=== PATIENT | male | born 1985 | race Two or more races ===

== ENCOUNTER 2024-04-24 23:13 | Inpatient (IN) | payer BC ==
[~2024-04-24] VITALS: Ht 175.3 cm; Wt 93.9 kg
[2024-04-25] VITALS (11 sets, daily range): BP systolic 91–130; BP diastolic 54–74; PULSE 75–121; RESP 12–28; TEMP 102.3; O2SAT 94–100
[2024-04-25 00:27] LABS: Basophils # (auto) 0 10 ^3/uL (0-0.2); Basophils % (auto) 0.2 % (0.0-2.0); Eosinophils # (auto) 0 10 ^3/uL (0-0.8); Hematocrit 40.3 % (41.0-53.0); Hemoglobin 13.8 g/dL (13.5-17.5); Lymphocytes # (auto) 0.7 10 ^3/uL (0.4-5.4); Mean Corpuscular Hemoglobin 31.8 pg (28.0-32.0); Mean Corpuscular Hgb Conc. 34.4 g/dL (32.0-36.0); Mean Corpuscular Volume 92.5 fL (80.0-100.0); Monocytes # (auto) 0.5 10 ^3/uL (0-1.3); Monocytes % (auto) 2.7 % (0.0-12.0); Neutrophils # (auto) 15.8 10 ^3/uL (1.6-8.6); Neutrophils % (auto) 93.1 % (37.0-80.0); Platelet Count (auto) 387 10^3/uL (140-450); Red Blood Cells 4.36 10^6/uL (4.5-5.90)
[2024-04-25 01:47] LABS: Alanine Aminotransferase 31 U/L (7-40); Alkaline Phosphatase 122 U/L (46-116); Anion Gap 9 (5-15); Aspartate Aminotransferase 40 U/L (13-40); BUN/Creatinine Ratio 9.3 (10.0-20.0); Bilirubin, Total 0.6 mg/dL (0.2-1.0); Blood Urea Nitrogen 9 mg/dL (9-23); Carbon Dioxide 21 mmol/L (20-31); Chloride 109 mmol/L (98-107); Glucose 137 mg/dL (74-106); Potassium 4.2 mmol/L (3.5-5.1); Sodium 139 mmol/L (136-145); Total Protein 7.5 g/dL (5.7-8.2)
[2024-04-25 02:18] LABS: INR 1.21 (0.9-1.15); Prothrombin Time 12.6 sec (9.3-11.8)
[2024-04-25] MEDS: HEPARIN SODIUM (PORCINE) 5000 UNITS/ML 1ML VIAL IV ONE (02:59)
[2024-04-25] MEDS: NITROGLYCERIN 2% OINT 1GM PKG TD ONE (03:04)
[2024-04-25] MEDS ORDERED: HEPARIN SODIUM (PORCINE) 5000 UNITS/ML 1ML VIAL IV ONE (03:15)
[2024-04-25] MEDS: HEPARIN DRIP/D5W 100UNITS/ML 250 ML IV SCH ×2 (03:49→12:45)
[2024-04-25] MEDS ORDERED: MORPHINE SULFATE INJ 2 MG/ml SYRG IV PRN (05:15)
[2024-04-25] MEDS ORDERED: ONDANSETRON HCL 4 MG/2 ML VIAL IV PRN (05:15)
[2024-04-25] MEDS ORDERED: NITROGLYCERIN 0.4 MG SL TAB SL PRN (05:15)
[2024-04-25] MEDS: AZITHROMYCIN 500MG/ 250ML 250 ML IV SCH (10:00)
[2024-04-25] MEDS: cefTRIAXone 1GM/50ML D5W 50 ML IV SCH (10:39)
[2024-04-25 11:18] LABS: INR 1.15 (0.9-1.15); Partial Thromboplastin Time 34.9 SEC (24.5-34.5); Prothrombin Time 12.1 sec (9.3-11.8)
[2024-04-25 11:20] LABS: Triglycerides 128 mg/dL (< 150)
[2024-04-25 11:21] LABS: LDL Cholesterol 75 mg/dL (< 100)
[2024-04-25 11:22] LABS: Cholesterol 121 mg/dL (< 200); HDL Cholesterol 22 mg/dL (40-59)
[2024-04-25] MEDS: ALBUTEROL SULF 2.5 MG/0.5ML(0.5%) NEB SOLN NEB PRN (11:31)
[2024-04-25] MEDS: HEPARIN SODIUM (PORCINE) 5000 UNITS/ML 1ML VIAL IV STA (12:53)
[2024-04-25] MEDS: ASPirin 81 mg TAB PO ONE (12:54)
[2024-04-25] MEDS: ATORVASTATIN 20 MG TAB PO ONE (12:54)
[2024-04-25] MEDS: LACTATED RINGER'S 1,000 ML IV SCH (12:54)
[2024-04-25] MEDS: ENOXAPARIN SOD 40 MG/0.4 ML SYRINGE SC SCH (15:30)
[2024-04-25 16:02] LABS: Amphetamine Screen, Urine Neg (NEGATIVE); Barbiturate Scree,Urine Neg (NEGATIVE)
[2024-04-25 16:03] LABS: Benzodiazephine Screen, Urine Neg (NEGATIVE); Cannabinoid Screen, Urine Neg (NEGATIVE); Cocaine Screen, Urine Neg (NEGATIVE); Opiate Scree,Urine Neg (NEGATIVE); Phencyclidine Screen, Urine Neg (NEGATIVE)
[2024-04-25 16:18] LABS: COVID19 ANTIGEN SOFIA FIA NEGATIVE (NEGATIVE); Rapid Influenza A Negative (Negative); Rapid Influenza B Negative (Negative)
[2024-04-25] MEDS: ACETAMINOPHEN 325 MG TAB PO PRN (18:23)
[2024-04-26] VITALS (16 sets, daily range): BP systolic 117–125; BP diastolic 69–79; PULSE 81–120; RESP 16–20; TEMP 98.7–102.8; O2SAT 93–100
[2024-04-26] MEDS: TEMAZEPAM 15 MG CAP PO PRN (00:13)
[2024-04-26] MEDS: guaiFENesin-DM 100/10mg/5ml SYR PO PRN (00:14)
[2024-04-26 06:30] LABS: Basophils # (auto) 0.1 10 ^3/uL (0-0.2); Basophils % (auto) 0.3 % (0.0-2.0); Eosinophils # (auto) 0.2 10 ^3/uL (0-0.8); Eosinophils % (auto) 0.8 % (0.0-7.0); Hematocrit 40.9 % (41.0-53.0); Hemoglobin 13.8 g/dL (13.5-17.5); Lymphocytes % (auto) 9.3 % (10.0-50.0); Mean Corpuscular Hemoglobin 30.9 pg (28.0-32.0); Mean Corpuscular Hgb Conc. 33.7 g/dL (32.0-36.0); Mean Corpuscular Volume 91.8 fL (80.0-100.0); Monocytes % (auto) 9.4 % (0.0-12.0); Neutrophils % (auto) 80.2 % (37.0-80.0); Nucleated Red Blood Cells % 0.1 %; Platelet Count (auto) 402 10^3/uL (140-450); Red Blood Cells 4.46 10^6/uL (4.5-5.90); Red Cell Distribution Width 13.1 % (11.8-14.3); White Blood Cell 21.2 10^3/uL (4.4-10.8)
[2024-04-26 06:41] LABS: Alanine Aminotransferase 39 U/L (7-40); Albumin 3.5 g/dL (3.2-4.8); Alkaline Phosphatase 122 U/L (46-116); Anion Gap 10 (5-15); Aspartate Aminotransferase 40 U/L (13-40); BUN/Creatinine Ratio 9.6 (10.0-20.0); Blood Urea Nitrogen 9 mg/dL (9-23); Calcium 8.5 mg/dL (8.7-10.4); Carbon Dioxide 24 mmol/L (20-31); Chloride 104 mmol/L (98-107); Glucose 95 mg/dL (74-106); Potassium 4.4 mmol/L (3.5-5.1); Sodium 138 mmol/L (136-145)
[2024-04-26 06:42] LABS: Bilirubin, Total 0.5 mg/dL (0.2-1.0); Total Protein 6.3 g/dL (5.7-8.2)
[2024-04-26] MEDS: levoFLOXacin 750MG 150 ML IV ONE (07:15)
[2024-04-26] MEDS ORDERED: VANCOMYCIN PER PHARMACY 0 MG IV SCH (08:15)
[2024-04-26] MEDS: PIPERACILLIN-TAZO 4.5GM 100 ML IV ONE (08:42)
[2024-04-26] MEDS: VANCOMYCIN 1GM/200ML 200 ML IV SCH ×2 (10:06→17:51)
[2024-04-26] MEDS: ASPirin 81 mg TAB PO SCH (10:06)
[2024-04-26] MEDS: PIPERACILLIN-TAZO 4.5GM 100 ML IV SCH (12:25)
[2024-04-26] MEDS: ALBUTEROL SULF 2.5 MG/0.5ML(0.5%) NEB SOLN NEB SCH (20:24)
[2024-04-26] MEDS: DOXYCYCLINE 100 MG TAB/CAP PO SCH (21:08)
[2024-04-26] MEDS: ATORVASTATIN 20 MG TAB PO SCH (21:08)
[2024-04-26] MEDS: levoFLOXacin 750MG 150 ML IV SCH (21:08)
[2024-04-27] VITALS (13 sets, daily range): BP systolic 121–137; BP diastolic 73–82; PULSE 103–125; RESP 14–20; TEMP 98.2–100.8; O2SAT 93–100
[2024-04-27] MEDS ORDERED: levoFLOXacin 750MG 150 ML IV SCH (10:00)
[2024-04-27] MEDS: LACTATED RINGER'S 1,000 ML IV ONE (10:05)
[2024-04-27] MEDS ORDERED: ACETAMINOPHEN 325 MG TAB PO PRN (11:00)
[2024-04-27 11:26] LABS: Basophils # (auto) 0.2 10 ^3/uL (0-0.2); Basophils % (auto) 0.8 % (0.0-2.0); Eosinophils # (auto) 0.1 10 ^3/uL (0-0.8); Eosinophils % (auto) 0.3 % (0.0-7.0); Hematocrit 40.4 % (41.0-53.0); Hemoglobin 13.9 g/dL (13.5-17.5); Lymphocytes # (auto) 1.1 10 ^3/uL (0.4-5.4); Lymphocytes % (auto) 4.6 % (10.0-50.0); Mean Corpuscular Hemoglobin 31.6 pg (28.0-32.0); Mean Corpuscular Hgb Conc. 34.4 g/dL (32.0-36.0); Mean Corpuscular Volume 91.6 fL (80.0-100.0); Monocytes # (auto) 2.1 10 ^3/uL (0-1.3); Monocytes % (auto) 8.9 % (0.0-12.0); Neutrophils # (auto) 19.6 10 ^3/uL (1.6-8.6); Neutrophils % (auto) 85.4 % (37.0-80.0); Platelet Count (auto) 402 10^3/uL (140-450); Red Blood Cells 4.41 10^6/uL (4.5-5.90); Red Cell Distribution Width 12.8 % (11.8-14.3)
[2024-04-27] MEDS: ACETAMINOPHEN 325 MG TAB PO SCH (12:48)
[2024-04-27] MEDS ORDERED: ACETAMINOPHEN 325 MG TAB PO SCH (14:00)
[2024-04-27] MEDS ORDERED: IOHEXOL 300 MG/ML 100ML BOTTLE IJ ONE (16:16)
[2024-04-27] MEDS ORDERED: MORPHINE SULFATE INJ 2 MG/ml SYRG IV PRN (18:15)
[2024-04-28] VITALS (15 sets, daily range): BP systolic 122–143; BP diastolic 79–89; PULSE 91–120; RESP 16–20; TEMP 97.3–102.2; O2SAT 94–100
[2024-04-28] MEDS: FLUCONAZOLE 200MG/100ML 100 ML IV SCH (10:46)
[2024-04-28] MEDS: PIPERACILLIN-TAZO 4.5GM 100 ML IV SCH (12:25)
[2024-04-28] MEDS: IBUPROFEN 800 MG TAB PO PRN (12:26)
[2024-04-28 12:49] LABS: Chloride 104 mmol/L (98-107); Sodium 134 mmol/L (136-145)
[2024-04-28 12:50] LABS: Anion Gap 8 (5-15); Carbon Dioxide 22 mmol/L (20-31)
[2024-04-28 12:55] LABS: BUN/Creatinine Ratio 11.2 (10.0-20.0); Blood Urea Nitrogen 10 mg/dL (9-23); Glucose 94 mg/dL (74-106)
[2024-04-28 13:06] LABS: CRP High Sensitivity > 20.00 mg/dL (<1.0)
[2024-04-28 13:07] LABS: Erythrocyte Sedimentation Rate 72 mm/hr (0-20)
[2024-04-28] MEDS: IBUPROFEN 600 MG TAB PO PRN (21:34)
[2024-04-29] VITALS (17 sets, daily range): BP systolic 114–147; BP diastolic 70–91; PULSE 85–110; RESP 16–21; TEMP 98.3–99.6; O2SAT 93–100
[2024-04-29 05:32] LABS: Eosinophils # (auto) 0.5 10 ^3/uL (0-0.8); Hemoglobin 13.7 g/dL (13.5-17.5); Lymphocytes # (auto) 1.2 10 ^3/uL (0.4-5.4); Lymphocytes % (auto) 5.9 % (10.0-50.0); White Blood Cell 20.7 10^3/uL (4.4-10.8)
[2024-04-29 05:34] LABS: Basophils # (auto) 0.1 10 ^3/uL (0-0.2); Basophils % (auto) 0.3 % (0.0-2.0); Eosinophils % (auto) 2.3 % (0.0-7.0); Hematocrit 40.2 % (41.0-53.0); Mean Corpuscular Hemoglobin 31.6 pg (28.0-32.0); Mean Corpuscular Hgb Conc. 34.1 g/dL (32.0-36.0); Mean Corpuscular Volume 92.6 fL (80.0-100.0); Monocytes # (auto) 1.8 10 ^3/uL (0-1.3); Monocytes % (auto) 8.8 % (0.0-12.0); Neutrophils # (auto) 17.1 10 ^3/uL (1.6-8.6); Neutrophils % (auto) 82.7 % (37.0-80.0); Platelet Count (auto) 436 10^3/uL (140-450); Red Blood Cells 4.34 10^6/uL (4.5-5.90); Red Cell Distribution Width 13.2 % (11.8-14.3)
[2024-04-29] MEDS: LACTATED RINGER'S 1,000 ML IV SCH (09:23)
[2024-04-30] VITALS (16 sets, daily range): BP systolic 106–132; BP diastolic 64–70; PULSE 78–109; RESP 14–19; TEMP 97.2–98.4; O2SAT 92–100
[2024-04-30 17:06] LABS: QuantiFERON-TB Gold Plus Negative (Negative)
[2024-05-01] VITALS (12 sets, daily range): BP systolic 115–137; BP diastolic 73–86; PULSE 70–105; RESP 15–18; TEMP 97.9–99.1; O2SAT 92–99
[2024-05-01 07:04] LABS: Anion Gap 6 (5-15); Carbon Dioxide 25 mmol/L (20-31); Chloride 103 mmol/L (98-107); Potassium 3.9 mmol/L (3.5-5.1); Sodium 134 mmol/L (136-145)
[2024-05-01 07:05] LABS: Calcium 8.6 mg/dL (8.7-10.4)
[2024-05-01 07:10] LABS: BUN/Creatinine Ratio 8.8 (10.0-20.0); Blood Urea Nitrogen 8 mg/dL (9-23); Glucose 81 mg/dL (74-106)
[2024-05-01 07:13] LABS: Basophils # (auto) 0 10 ^3/uL (0-0.2); Basophils % (auto) 0.2 % (0.0-2.0); Eosinophils # (auto) 0.7 10 ^3/uL (0-0.8); Eosinophils % (auto) 4.4 % (0.0-7.0); Hemoglobin 12.6 g/dL (13.5-17.5); Lymphocytes # (auto) 1.2 10 ^3/uL (0.4-5.4); Lymphocytes % (auto) 7.4 % (10.0-50.0); Mean Corpuscular Hemoglobin 31.4 pg (28.0-32.0); Mean Corpuscular Hgb Conc. 34.1 g/dL (32.0-36.0); Mean Corpuscular Volume 91.9 fL (80.0-100.0); Monocytes # (auto) 1.3 10 ^3/uL (0-1.3); Monocytes % (auto) 7.6 % (0.0-12.0); Neutrophils # (auto) 13.3 10 ^3/uL (1.6-8.6); Neutrophils % (auto) 80.4 % (37.0-80.0); Platelet Count (auto) 496 10^3/uL (140-450); Red Blood Cells 4.03 10^6/uL (4.5-5.90); Red Cell Distribution Width 13.7 % (11.8-14.3); White Blood Cell 16.5 10^3/uL (4.4-10.8)
[2024-05-01] MEDS: cefTRIAXone 1GM/50ML D5W 50 ML IV SCH (13:14)
[2024-05-02] VITALS (12 sets, daily range): BP systolic 98–138; BP diastolic 59–84; PULSE 88–102; RESP 18–22; TEMP 36.9; O2SAT 91–98
[2024-05-02] MEDS ORDERED: FLUC200T50 PO (14:50)
[2024-05-02] MEDS ORDERED: CEFP200T15 PO (14:50)
== END 2024-05-02 17:04 | disposition home or self-care (01) | DRG 871 ==
LOC: ER 23:13 → EDBD 23:13 → TELE 04-25 05:23 → TELE-E-ADS 04-25 22:06 → EAST 04-28 03:35
PROVIDERS: ADMIT Student in an Organized Health Care Education/Training Program; ATTEND Student in an Organized Health Care Education/Training Program
DX: A41.9 Sepsis, unspecified organism (principal); I21.A1 Myocardial infarction type 2; J12.9 Viral pneumonia, unspecified; J96.01 Acute respiratory failure with hypoxia; J15.211 Pneumonia due to Methicillin susceptible Staphylococcus aureus; J91.8 Pleural effusion in other conditions classified elsewhere; Z20.822 Contact with and (suspected) exposure to COVID-19; Z79.899 Other long term (current) drug therapy; Z78.9 Other specified health status
CPT/HCPCS: 36415; 71260; 76604; 80048; 80053; 80061; 80307; 83036; 83605; 83880; 84439; 84443; 84484; 85025; 85379; 85610; 85652; 85730; 86141; 86635; 87040; 87070; 87077; 87081; 87186; 87205; 87426; 87804; 93005; 93306; 93970; 94640; 96365; 96366; 96368; 96375; G0378; J1450; J1956; J2543

== ENCOUNTER → 2024-05-08 | Outpatient (CLI) | payer BC ==
[~2024-05-08] MED LIST: CEFP200T15 PO; FLUC200T50 PO
[2024-05-08 13:00] LABS: Basophils # (auto) 0.1 10 ^3/uL (0-0.2); Eosinophils # (auto) 0.1 10 ^3/uL (0-0.8); Neutrophils # (auto) 15.2 10 ^3/uL (1.6-8.6); White Blood Cell 17.2 10^3/uL (4.4-10.8)
[2024-05-08 13:01] LABS: Basophils % (auto) 0.3 % (0.0-2.0); Eosinophils % (auto) 0.5 % (0.0-7.0); Hematocrit 41.6 % (41.0-53.0); Hemoglobin 14.3 g/dL (13.5-17.5); Lymphocytes # (auto) 1.4 10 ^3/uL (0.4-5.4); Lymphocytes % (auto) 8.1 % (10.0-50.0); Mean Corpuscular Hemoglobin 31.2 pg (28.0-32.0); Mean Corpuscular Hgb Conc. 34.5 g/dL (32.0-36.0); Mean Corpuscular Volume 90.5 fL (80.0-100.0); Monocytes # (auto) 0.4 10 ^3/uL (0-1.3); Monocytes % (auto) 2.6 % (0.0-12.0); Neutrophils % (auto) 88.5 % (37.0-80.0); Nucleated Red Blood Cells % 0.1 %; Platelet Count (auto) 544 10^3/uL (140-450); Red Cell Distribution Width 13.6 % (11.8-14.3)
[2024-05-08 13:22] LABS: Alanine Aminotransferase 118 U/L (7-40); Albumin 3.6 g/dL (3.2-4.8); Alkaline Phosphatase 103 U/L (46-116); Anion Gap 5 (5-15); Aspartate Aminotransferase 70 U/L (13-40); BUN/Creatinine Ratio 10.3 (10.0-20.0); Blood Urea Nitrogen 11 mg/dL (9-23); Carbon Dioxide 26 mmol/L (20-31); Chloride 101 mmol/L (98-107); Glucose 165 mg/dL (74-106); Potassium 4.5 mmol/L (3.5-5.1); Sodium 132 mmol/L (136-145)
[2024-05-08 13:23] LABS: Bilirubin, Total 0.5 mg/dL (0.2-1.0); Total Protein 7.8 g/dL (5.7-8.2)
[2024-05-08 13:30] LABS: CRP High Sensitivity 5.03 mg/dL (<1.0)
[2024-05-08 14:46] LABS: Erythrocyte Sedimentation Rate 53 mm/hr (0-20)
== END | disposition home or self-care (01) ==
LOC: LAB 12:33
PROVIDERS: ATTEND Internal Medicine
DX: J18.9 Pneumonia, unspecified organism (principal); R05.3 Chronic cough
CPT/HCPCS: 36415; 80053; 85025; 85652; 86141

== ENCOUNTER → 2024-05-21 | Outpatient (CLI) | payer BC ==
[2024-05-21 11:46] LABS: Basophils # (auto) 0 10 ^3/uL (0-0.2); Basophils % (auto) 0.4 % (0.0-2.0); Eosinophils # (auto) 0.1 10 ^3/uL (0-0.8); Eosinophils % (auto) 1.1 % (0.0-7.0); Hematocrit 40.3 % (41.0-53.0); Hemoglobin 13.2 g/dL (13.5-17.5); Mean Corpuscular Hemoglobin 29.8 pg (28.0-32.0); Mean Corpuscular Hgb Conc. 32.7 g/dL (32.0-36.0); Mean Corpuscular Volume 90.9 fL (80.0-100.0); Monocytes # (auto) 0.9 10 ^3/uL (0-1.3); Monocytes % (auto) 7.7 % (0.0-12.0); Neutrophils # (auto) 9.3 10 ^3/uL (1.6-8.6); Neutrophils % (auto) 74.8 % (37.0-80.0); Platelet Count (auto) 507 10^3/uL (140-450); Red Blood Cells 4.43 10^6/uL (4.5-5.90); Red Cell Distribution Width 13.4 % (11.8-14.3); White Blood Cell 12.4 10^3/uL (4.4-10.8)
[2024-05-21 12:26] LABS: Alanine Aminotransferase 74 U/L (7-40); Albumin 3.7 g/dL (3.2-4.8); Alkaline Phosphatase 109 U/L (46-116); Anion Gap 8 (5-15); Aspartate Aminotransferase 28 U/L (13-40); BUN/Creatinine Ratio 11.9 (10.0-20.0); Bilirubin, Total 0.5 mg/dL (0.2-1.0); Blood Urea Nitrogen 12 mg/dL (9-23); Calcium 9.1 mg/dL (8.7-10.4); Carbon Dioxide 28 mmol/L (20-31); Chloride 103 mmol/L (98-107); Glucose 177 mg/dL (74-106); Potassium 4.1 mmol/L (3.5-5.1); Sodium 139 mmol/L (136-145)
== END | disposition home or self-care (01) ==
LOC: LAB 11:30
PROVIDERS: ATTEND Internal Medicine
DX: R74.01 Elevation of levels of liver transaminase levels (principal); R05.3 Chronic cough; J15.9 Unspecified bacterial pneumonia
CPT/HCPCS: 36415; 80053; 85025

== ENCOUNTER → 2024-06-07 | Outpatient (CLI) | payer BC ==
[2024-06-07 16:06] LABS: Basophils # (auto) 0.1 10 ^3/uL (0-0.2); Basophils % (auto) 0.8 % (0.0-2.0); Eosinophils # (auto) 0.2 10 ^3/uL (0-0.8); Eosinophils % (auto) 1.9 % (0.0-7.0); Hematocrit 37.9 % (41.0-53.0); Hemoglobin 12.8 g/dL (13.5-17.5); Lymphocytes # (auto) 2.1 10 ^3/uL (0.4-5.4); Lymphocytes % (auto) 17.3 % (10.0-50.0); Mean Corpuscular Hemoglobin 30.3 pg (28.0-32.0); Mean Corpuscular Hgb Conc. 33.8 g/dL (32.0-36.0); Mean Corpuscular Volume 89.7 fL (80.0-100.0); Monocytes % (auto) 8.2 % (0.0-12.0); Neutrophils # (auto) 8.7 10 ^3/uL (1.6-8.6); Neutrophils % (auto) 71.8 % (37.0-80.0); Nucleated Red Blood Cells % 0.2 %; Platelet Count (auto) 425 10^3/uL (140-450); Red Blood Cells 4.22 10^6/uL (4.5-5.90); White Blood Cell 12.1 10^3/uL (4.4-10.8)
[2024-06-07 16:34] LABS: Alanine Aminotransferase 22 U/L (7-40); Albumin 3.7 g/dL (3.2-4.8); Alkaline Phosphatase 102 U/L (46-116); Anion Gap 7 (5-15); Aspartate Aminotransferase 13 U/L (13-40); Bilirubin, Total 0.3 mg/dL (0.2-1.0); Blood Urea Nitrogen 13 mg/dL (9-23); Calcium 9.3 mg/dL (8.7-10.4); Carbon Dioxide 30 mmol/L (20-31); Chloride 105 mmol/L (98-107); Glucose 105 mg/dL (74-106); Potassium 3.8 mmol/L (3.5-5.1); Sodium 142 mmol/L (136-145); Total Protein 8.2 g/dL (5.7-8.2)
[2024-06-07 16:43] LABS: CRP High Sensitivity 2.17 mg/dL (<1.0)
[2024-06-07 17:08] LABS: Erythrocyte Sedimentation Rate 72 mm/hr (0-20)
== END | disposition home or self-care (01) ==
LOC: LAB 15:36
PROVIDERS: ATTEND Internal Medicine
DX: J18.9 Pneumonia, unspecified organism (principal)
CPT/HCPCS: 36415; 80053; 83615; 85025; 85652; 86141

== ENCOUNTER → 2024-07-30 | Outpatient (CLI) | payer BC ==
--- NOTE | 2024-07-30 16:04 | DVHNC2 ---
Procedure - July 30, 2024 Pulmonary function test interpretation No obstructive or restrictive ventilatory defect. No significant bronchodilator response. Total lung capacity is 83% of predicted (5.04 L); within normal limits. Diffusion capacity is 113% of predicted, within normal limits. OLYA MUÑOZ MD Jul 30, 2024 16:04
--- NOTE | 2024-07-30 16:06 | DVHNC2 ---
Procedure - 6 minute walk test interpretation July 30, 2024 No exertional hypoxia noted with 6 minute walk test. Lowest saturation was 94%. Expected time completed. Expected heart rate achieved. Mild reduction in distance walk. OLYA MUÑOZ MD Jul 30, 2024 16:06
== END | disposition home or self-care (01) ==
LOC: XYW 10:35
PROVIDERS: ATTEND Internal Medicine Pulmonary Disease
DX: J47.9 Bronchiectasis, uncomplicated (principal); R06.09 Other forms of dyspnea; F17.210 Nicotine dependence, cigarettes, uncomplicated
CPT/HCPCS: 94060; 94618; 94727; 94729

== ENCOUNTER 2025-01-02 11:54 | Outpatient (CLI) | payer BC ==
[2025-01-02 12:14] LABS: Basophils # (auto) 0.1 10 ^3/uL (0-0.2); Eosinophils # (auto) 0.4 10 ^3/uL (0-0.8); Hemoglobin 14.3 g/dL (13.5-17.5); Lymphocytes # (auto) 2.1 10 ^3/uL (0.4-5.4); Monocytes # (auto) 0.8 10 ^3/uL (0-1.3); Monocytes % (auto) 7.9 % (0.0-12.0)
[2025-01-02 12:17] LABS: Basophils % (auto) 0.9 % (0.0-2.0); Eosinophils % (auto) 4.3 % (0.0-7.0); Hematocrit 42.2 % (41.0-53.0); Mean Corpuscular Hemoglobin 28.5 pg (28.0-32.0); Mean Corpuscular Hgb Conc. 33.8 g/dL (32.0-36.0); Mean Corpuscular Volume 84.4 fL (80.0-100.0); Neutrophils # (auto) 6.9 10 ^3/uL (1.6-8.6); Neutrophils % (auto) 66.9 % (37.0-80.0); Nucleated Red Blood Cells % 0.1 %; Platelet Count (auto) 485 10^3/uL (140-450); Red Cell Distribution Width 13.3 % (11.8-14.3); White Blood Cell 10.3 10^3/uL (4.4-10.8)
[2025-01-02 12:38] LABS: Albumin 4.3 g/dL (3.2-4.8); Alkaline Phosphatase 120 U/L (46-116); Anion Gap 10 (5-15); Aspartate Aminotransferase 14 U/L (13-40); Bilirubin, Total 0.5 mg/dL (0.2-1.0); Blood Urea Nitrogen 12 mg/dL (9-23); Carbon Dioxide 26 mmol/L (20-31); Chloride 104 mmol/L (98-107); Cholesterol 171 mg/dL (< 200); Glucose 86 mg/dL (74-106); Sodium 140 mmol/L (136-145); Total Protein 8.8 g/dL (5.7-8.2)
[2025-01-02 12:39] LABS: HDL Cholesterol 31 mg/dL (40-59); LDL Cholesterol 122 mg/dL (< 100); Triglycerides 162 mg/dL (< 150)
[2025-01-02 12:54] LABS: Alanine Aminotransferase 13 U/L (7-40)
== END 2025-01-02 17:00 | disposition home or self-care (01) ==
LOC: LAB 11:54
PROVIDERS: ATTEND Internal Medicine
DX: J47.9 Bronchiectasis, uncomplicated (principal); Z98.890 Other specified postprocedural states
CPT/HCPCS: 36415; 80053; 80061; 84439; 84443; 85025

== ENCOUNTER 2025-02-25 15:10 | Outpatient (CLI) | payer BC ==
[2025-02-25 16:30] LABS: Amphetamine Screen, Urine Neg (NEGATIVE); Barbiturate Scree,Urine Neg (NEGATIVE); Benzodiazephine Screen, Urine Neg (NEGATIVE); Cannabinoid Screen, Urine Neg (NEGATIVE); Cocaine Screen, Urine Neg (NEGATIVE); Opiate Scree,Urine Neg (NEGATIVE); Phencyclidine Screen, Urine Neg (NEGATIVE)
== END 2025-02-25 17:00 | disposition home or self-care (01) ==
LOC: LAB 15:10
PROVIDERS: ATTEND Internal Medicine
DX: R00.0 Tachycardia, unspecified (principal); Z79.899 Other long term (current) drug therapy
CPT/HCPCS: 80307; 84439